=== PATIENT | female | born 1955 | race Caucasian/White ===

== ENCOUNTER 2018-05-10 14:15 | Outpatient (CLI) | payer BC | END 2018-05-10 14:16 | disposition home or self-care (01) | LOC: SC 14:15 | PROVIDERS: ATTEND Internal Medicine Pulmonary Disease | DX: G47.33 Obstructive sleep apnea (adult) (pediatric) (principal); E66.01 Morbid (severe) obesity due to excess calories; Z68.43 Body mass index [BMI] 50.0-59.9, adult | CPT/HCPCS: 99203; 99212 ==

== ENCOUNTER 2018-06-07 19:30 | Outpatient (CLI) | payer BC | END 2018-06-07 23:59 | disposition home or self-care (01) | LOC: SC 19:30 | PROVIDERS: ATTEND Internal Medicine Pulmonary Disease | DX: G47.33 Obstructive sleep apnea (adult) (pediatric) (principal) | CPT/HCPCS: 95806 ==

== ENCOUNTER 2018-07-19 14:00 | Outpatient (CLI) | payer BC | END 2018-07-19 14:01 | disposition home or self-care (01) | LOC: SC 14:00 | PROVIDERS: ATTEND Internal Medicine Pulmonary Disease | DX: G47.33 Obstructive sleep apnea (adult) (pediatric) (principal) | CPT/HCPCS: 99212; 99213 ==

== ENCOUNTER 2022-03-06 04:58 | Outpatient (CLI) | payer BC | END 2022-03-06 04:59 | disposition EMS.NT | LOC: EMS 04:58 | DX: Z03.89 Encounter for observation for other suspected diseases and conditions ruled out (principal) ==